=== PATIENT | female | born 1975 | race Caucasian/White ===

== ENCOUNTER 2025-01-06 09:59 | Emergency (ER) | payer SELFPAY ==
[2025-01-06] VITALS (23 sets, daily range): BP systolic 111–173; BP diastolic 69–99; PULSE 57–92; RESP 13–23; TEMP 36.4; O2SAT 84–100
--- NOTE | ~2025-01-06 | CT_ITS ---
History: Headache PROCEDURE: CT head without contrast. COMPARISON: None TECHNIQUE: Axial imaging of the head performed from the skull base to the vertex without IV contrast. Sagittal a nd coronal reformations obtained. DLP: 605 mGy-cm FINDINGS: The ventricles are normal in size, shape and position. There is no mass, mass effect or midline shift. There is no abnormal extra-axial fluid collection or intracranial hemorrhage. Visualized paranasal sinuses are clear. The mastoid air cells are well aerated. No acute displaced fractures within the overlying cranium. Impression: No acute intracranial hemorrhage or suspicious mass effect. Reviewed, dictated and finalized at location A. ANICAL SYSTEMS DESIGNER Impression: No acute intracranial hemorrhage or suspicious mass effect.
--- NOTE | ~2025-01-06 | XR_ITS ---
EXAMINATION: XR chest 1V portable DATE: 01/06/2025 13:04 INDICATION: Headache. TECHNIQUE: A single frontal view of the chest was obtained. COMPARISON: None. FINDINGS: There is no pneumonia, pleural effusion, or pneumothorax. The heart size is normal. There a re changes of anterior fusion procedure in cervical spine. IMPRESSION: 1. No acute cardiopulmonary disease. Reviewed, dictated and finalized at location A. OELECTRIC POWERPLANT SUPERVISOR
--- NOTE | 2025-01-06 10:17 | ECG_ITS ---
Test Date: 2025-01-06 10:21:03 Measurements Intervals [place] Rate: 80 P: 54 [place]: 148 QRS: 30 QRSD: 88 T: 37 QT: 369 QTc: 427 Interpretive Statements SINUS RHYTHM MINIMAL Q WAVES- LAT/HIGH LAT LEADS BASELINE ARTIFACT- I, II, III, AVR, AVL, AVF BORDERLINE ECG No previous ECG available for comparison Electronically Signed On 01-06-2025 10:34:40 PROCESS ENGINEERING INTERN by Jatin Luna D.O.
[2025-01-06 10:25] LABS: Glucose Point of Care 112 mg/dl (65-105)
--- NOTE | 2025-01-06 12:10 | ED_ITS ---
HPI - General Adult General Chief complaint: Neuro Symptoms/Deficit Stated complaint: anxiety attack? Time Seen by Provider: 01/06/25 11:22 Source: patient Mode of arrival: ambulatory History of Present Illness HPI narrative: 49 YEARS OLD WHITE FEMALE WOKE UP THIS MORNING AT 6:30 A.M. WITH DIFFUSE HEADACHE AROUND HER HEAD LACK OF EYES SQUEEZING HER HEAD, 8/10, EXCEDRIN, 3/10, WENT TO WORK AND HEADACHE STARTED COMING BACK AGAIN. ASSOCIATED WITH HOT FLASHES, DIZZINESS, LIGHTHEADEDNESS, CRYING SPELLS, OVERWHELMING FEELING BECAUSE OF TOO MUCH STRESS AT WORK, WITH LEFT SHOULDER TIGHTNESS AND SQUEEZING. AT WORK PATIENT RECEIVED HYDRALAZINE AND LISINOPRIL. HISTORY OF ANXIETY, DEPRESSION, OF CYMBALTA FOR 1 YEAR, CURRENTLY NOT ON ANY MEDICINE AT HOME Related Data Home Medications ?Medication ?Instructions ?Recorded ?Confirmed ?Last Taken ?Type omeprazole 20 mg capsule,delayed 20 mg PO DAILY 01/06/25 01/06/25 01/05/25 History release Allergies Allergy/AdvReac Type Severity Reaction Status Date / Time No Known Allergies Allergy Verified 01/06/25 10:34 [facility] Social History Social History Substance use type: former substance user and other Course Vital Signs Vital signs: Vital Signs Temperature 36.4 C 01/06/25 10:09 Pulse Rate 83 01/06/25 10:09 Respiratory Rate 16 01/06/25 10:09 Blood Pressure 172/87 H 01/06/25 10:09 Pulse Oximetry 100 01/06/25 10:09 Oxygen Delivery Room Air 01/06/25 10:09 Temperature 36.4 C 01/06/25 10:09 Pulse Rate 63 01/06/25 15:16 Respiratory Rate 17 01/06/25 15:16 Blood Pressure 119/76 01/06/25 12:38 Pulse Oximetry 100 01/06/25 14:00 Oxygen Delivery Room Air 01/06/25 10:28 Medical Decision Making Vital Signs Vital Signs: Vital Signs Temperature 36.4 C 01/06/25 10:09 Pulse Rate 83 01/06/25 10:09 Respiratory Rate 16 01/06/25 10:09 Blood Pressure 172/87 H 01/06/25 10:09 Pulse Oximetry 100 01/06/25 10:09 Oxygen Delivery Room Air 01/06/25 10:09 Temperature 36.4 C 01/06/25 10:09 Pulse Rate 63 01/06/25 15:16 Respiratory Rate 17 01/06/25 15:16 Blood Pressure 119/76 01/06/25 12:38 Pulse Oximetry 100 01/06/25 14:00 Oxygen Delivery Room Air 01/06/25 10:28 Lab Data 01/06/25 12:33 01/06/25 12:33 Labs: Lab Results 01/06/25 01/06/25 01/06/25 Range/Units 10:12 12:33 12:38 WBC 6.8 (4.5-10.0) K/mm3 RBC 4.61 (4.2-5.4) M/mm3 Hgb 14.0 (12.0-15.0) g/dL Hct 42.4 (37.0-47.0) % MCV 92.0 (80-100) fl MCH 30.4 (26-34) pg MCHC 33.0 (32-36) g/dl RDW 12.6 (11.5-14.5) % Plt Count 414 H (150-375) k/mm3 MPV 10.6 H (7.4-10.4) fl Immature Gran % (Auto) 0.1 (0-0.5) % Neut % (Auto) 53.3 (45.5-73.1) % Lymph % (Auto) 36.7 (18.3-44.2) % [place] % (Auto) 7.1 (2.6-8.5) % Eos % (Auto) 2.2 (0-4.4) % Baso % (Auto) 0.6 (0.2-1.2) % Lymph # (Auto) 2.49 (0.9-3.2) K/mm3 [place] # (Auto) 0.5 (0.1-0.6) K/mm3 Eos # (Auto) 0.2 (0-0.3) K/mm3 Baso # (Auto) 0.0 (0.0-0.1) K/mm3 Abs Immat Gran (auto) 0.01 (0.00-0.031) K/mm3 Absolute Neuts (auto) 3.6 (1.3-6.7) K/mm3 Absolute Nucleated RBC 0.000 (0.0-0.012) K/mm3 Nucleated RBC % 0.0 (0.0-0.2) % Sodium 140 (137-145) mmol/L Potassium 3.8 (3.4-5.0) mmol/L Chloride 101 (98-107) mmol/L Carbon Dioxide 22 (22-30) mmol/L Anion Gap 17 H (4-12) mmol/L BUN 12 (7-17) mg/dL Creatinine 0.69 L (0.7-1.0) mg/dL Estim Creat Clear Calc 87 ml/min Estimated GFR > 60 (59 - ) Glucose 85 (65-110) mg/dL POC Capillary Glucose 112 H (65-105) mg/dl Calcium 10.0 (8.4-10.2) mg/dL Total Bilirubin 0.6 (0.2-1.3) mg/dL AST 25 (14-36) U/L ALT 18 (6-35) U/L Alkaline Phosphatase 85 (38-126) U/L Total Protein 8.0 (6.3-8.2) g/dL Albumin 4.8 (3.5-5.1) g/dL TSH Pending Urine Color Yellow (Yellow) Urine Appearance Clear (Clear) Urine pH 6.5 (5.0-9.0) Ur Specific [place] 1.006 (1.001-1.035) Urine Protein Negative (Negative) mg/dL Urine Glucose (UA) Negative (Negative) mg/dL Urine Ketones Negative (Negative) mg/dL Ur Blood (Man) Negative (Negative) Urine Nitrate Negative (Negative) Urine Bilirubin Negative (Negative) Urine Urobilinogen 0.2 (<2.0) mg/dL Leukocyte Esterase Rfl Negative (Negative) WINDY/UL POC Urine HCG, Qual Negative (Negative) Discharge Plan Discharge Clinical Impression: Anxiety, Headache Patient Disposition: Home, Self-Care Condition: Improved Instructions: Acute Headache (ED), Anxiety (ED) Additional Instructions: RETURN IF SYMPTOMS ARE WORSENING , CALL YOUR FAMILY PHYSICIAN FOR APPOINTMENT, TAKE TYLENOL NEEDED FOR ACHES AND PAIN, CONTINUE HOME MEDICATIONS. Patient Language: Ukrainian Prescriptions: No Action omeprazole 20 mg capsule,delayed release(DR/EC) 20 mg PO DAILY Follow-up/Referrals: El Vel[place] MD [Physician] - UNKNOWN,DOCTOR [Primary Care Provider] - Stand Alone Forms: Work/School Release IP
[2025-01-06] MEDS: SODIUM CHLORIDE 0.9% IV 1,000 ML 999 ML IV CONT (12:34)
[2025-01-06] MEDS: KETOROLAC 30 MG/ML VIAL (*BKC) IV PUSH (12:36)
[2025-01-06] MEDS: LORazepam INJ (*CRX) 2 MG/ML VIAL 1 MG IV PUSH (12:37)
[2025-01-06 12:39] LABS: BEDSIDEPREGUCG Negative (Negative)
[2025-01-06 12:47] LABS: Basophils Percent Auto 0.6 % (0.2-1.2); Eosinophils Absolute Auto 0.2 K/mm3 (0-0.3); Eosinophils Percent Auto 2.2 % (0-4.4); Hematocrit 42.4 % (37.0-47.0); Immature Granulocyte Absolute 0.01 K/mm3 (0.00-0.031); Immature Granulocyte Percent A 0.1 % (0-0.5); Lymphocytes Absolute Auto 2.49 K/mm3 (0.9-3.2); Lymphocytes Percent Auto 36.7 % (18.3-44.2); Mean Corpuscular Hemoglobin 30.4 pg (26-34); Mean Platelet Volume 10.6 fl (7.4-10.4); Monocytes Absolute Auto 0.5 K/mm3 (0.1-0.6); Monocytes Percent Auto 7.1 % (2.6-8.5); Neutrophils Absolute Auto 3.6 K/mm3 (1.3-6.7); Neutrophils Percent Auto 53.3 % (45.5-73.1); Platelet Count Result 414 k/mm3 (150-375); Red Blood Count 4.61 M/mm3 (4.2-5.4); Red Cell Distribution Width 12.6 % (11.5-14.5); White Blood Count 6.8 K/mm3 (4.5-10.0)
[2025-01-06 12:49] LABS: Add Urine Microscopic? NO; Appearance Urine Clear (Clear); Bilirubin Urine Negative (Negative); Blood Urine Negative (Negative); Color Urine Yellow (Yellow); Glucose Urine UA Negative (Negative); Ketones Urine Negative (Negative); Leukocyte Esterase Ur Negative LEU/UL (Negative); Nitrate Urine Negative (Negative); Protein Urine Negative (Negative); Specific Grav Ur 1.006 (1.001-1.035); Urobilinogen Urine 0.2 mg/dL (<2.0); pH Urine 6.5 (5.0-9.0)
[2025-01-06 14:53] LABS: Alanine Aminotransferase 18 U/L (6-35); Albumin Level 4.8 g/dL (3.5-5.1); Alkaline Phosphatase 85 U/L (38-126); Anion Gap 17 mmol/L (4-12); Aspartate Amino Transferase 25 U/L (14-36); Bilirubin,Total 0.6 mg/dL (0.2-1.3); Blood Urea Nitrogen 12 mg/dL (7-17); Carbon Dioxide 22 mmol/L (22-30); Chloride 101 mmol/L (98-107); Estimated CRCL calculation 87 ml/min; Estimated Glomerular Filt Rate > 60; Glucose 85 mg/dL (65-110); Potassium 3.8 mmol/L (3.4-5.0); Sodium 140 mmol/L (137-145)
== END 2025-01-06 16:02 | disposition home or self-care (01) ==
PROVIDERS: Emergency Provider Emergency Medicine
DX: R51.9 Headache, unspecified (principal); F41.9 Anxiety disorder, unspecified; F32.A Depression, unspecified; R94.31 Abnormal electrocardiogram [ECG] [EKG]
CPT/HCPCS: 36415; 70450; 71045; 80053; 81003; 81025; 82948; 84443; 85025; 93005; 96361; 96374; 96375; 99284; J1885; J2060; J7030